=== PATIENT | male | born 1960 | race African-American/Black ===

== ENCOUNTER 2021-11-09 08:11 | Emergency (ER) | payer OTHER ==
[~2021-11-09] VITALS: Ht 188 cm; Wt 100.0 kg
[2021-11-09] MEDS ORDERED: IPRATROPIUM/ALBUTEROL 0.5-3(2.5)MG/3ML NEB HHN ONE (08:30)
[2021-11-09 09:02] LABS: BASOPHILS % 0.4 % (0.0-2.0); EOSINOPHILS % 0.6 % (0.0-5.0); HEMATOCRIT. 41.7 % (42.0-52.0); HEMOGLOBIN. 13.4 g/dL (14.0-18.0); LYMPHOCYTES % 12.1 % (20.0-50.0); MEAN CORPUSCULAR HEMOGLOBIN 28.5 pg (28.0-32.0); MEAN CORPUSCULAR VOLUME 88.5 fL (80.0-94.0); MEAN PLATELET VOLUME 9.2 fl (7.4-10.4); MONOCYTES % 12.1 % (2.0-8.0); NEUTROPHILS % 74.8 % (40.0-76.0); PLATELET 177 x1000/uL (130-400); RED BLOOD CELL COUNT 4.71 mill/uL (4.7-6.1); RED CELL DISTRIBUTION WIDTH 20.1 % (11.6-14.6)
[2021-11-09 09:09] LABS: CHLORIDE 88 mEq/L (98-107)
[2021-11-09] MEDS ORDERED: FUROSEMIDE 40MG/4ML VIAL IVP ONE (10:30)
[2021-11-09 12:57] VITALS: BP 122/61
== END 2021-11-09 13:00 | disposition short-term general hospital (02) ==
LOC: EDSEX 08:11 → ER 08:11
DX: I13.0 Hypertensive heart and chronic kidney disease with heart failure and stage 1 through stage 4 chronic kidney disease, or unspecified chronic kidney disease (principal); N18.9 Chronic kidney disease, unspecified; I50.9 Heart failure, unspecified; R06.89 Other abnormalities of breathing; E87.1 Hypo-osmolality and hyponatremia; Z86.73 Personal history of transient ischemic attack (TIA), and cerebral infarction without residual deficits
CPT/HCPCS: 36415; 71045; 80053; 83880; 84484; 85025; 93005; 96374; 99285; J1940